=== PATIENT | female | born 1945 | race Caucasian/White ===

== ENCOUNTER 2024-05-20 09:51 | Inpatient (IN) | payer MEDICARE ==
[~2024-05-20] VITALS: Ht 162.6 cm; Wt 68.5 kg
[2024-05-20] MEDS: SODIUM CHLORIDE 0.9% 1000ML 1,000 ML IV STA (10:27)
[2024-05-20 10:39] LABS: BASOPHILS % 0.3 % (0.0-1.0); HEMATOCRIT 41.5 % (34.2-44.1); HEMOGLOBIN 12.6 g/dL (12.0-16.0); LYMPHOCYTES # (AUTO) 0.3 (1.0-3.2); LYMPHOCYTES % 5.6 % (18.0-39.1); MEAN CORPUSCULAR HEMOGLOBIN 28.7 pg (28-32); MEAN CORPUSCULAR HGB CONC 30.4 g/dL (31-35); MEAN CORPUSCULAR VOLUME 94.5 fL (81-99); MONOCYTES # (AUTO) 0.5 (0.2-0.8); MONOCYTES % 8.7 % (4.4-11.3); NEUTROPHILS # (AUTO) 5.2 (2.1-6.9); NEUTROPHILS % 85.1 % (38.7-80.0); PLATELET COUNT 182 x10e3/uL (140-360); RED BLOOD COUNT 4.39 x10e6/uL (3.6-5.1); RED CELL DISTRIBUTION WIDTH 13.7 % (11.7-14.4); WHITE BLOOD COUNT 6.07 x10e3/uL (4.8-10.8)
[2024-05-20 10:50] LABS: CORONAVIRUS COVID-19 AG NEGATIVE (NEGATIVE); INFLUENZA B AG NEGATIVE (NEGATIVE)
[2024-05-20 10:53] LABS: INFLUENZA A AG POSITIVE (NEGATIVE)
[2024-05-20 11:14] LABS: INR 0.94; PROTHROMBIN TIME 13.2 seconds (11.9-14.5)
[2024-05-20 11:15] LABS: PARTIAL THROMBOPLASTIN TIME 29.1 seconds (23.8-35.5)
[2024-05-20 11:20] LABS: ALBUMIN 4.2 g/dL (3.5-5.0); ALBUMIN/GLOBULIN RATIO 1.1 (0.8-2.0); ANION GAP 16.1 mmol/L (8-16); BILIRUBIN,TOTAL 0.4 mg/dL (0.2-1.2); CALCIUM 9.5 mg/dL (8.4-10.2); CREATININE, SERUM 0.74 mg/dL (0.57-1.11); POTASSIUM 4.1 mmol/L (3.5-5.1)
[2024-05-20] MEDS: KETOROLAC TROMETHAMINE 30 MG/ML VIAL IV STA (12:52)
[2024-05-20] MEDS ORDERED: Morphine 4mg INJECTION 4 MG/ML INJ IV PRN (14:15)
[2024-05-20] MEDS ORDERED: ONDANSETRON HCL INJ 2MG/ML 2ML 2 MG/ML VIAL IV PRN (14:15)
[2024-05-20] MEDS: OSELTAMIVIR PHOSPHATE 75 MG CAP PO ONE (14:49)
[2024-05-20] MEDS: ACETAMINOPHEN 325 MG TAB PO ONE (14:49)
[2024-05-20] MEDS: SODIUM CHLORIDE 0.9% 1000ML 1,000 ML IV SCH (14:49)
[2024-05-20 17:07] VITALS: PULSE 68; RESP 16; TEMP 99.4
[2024-05-20] MEDS ORDERED: DOCUSATE SODIUM 100 MG CAP PO PRN (18:00)
[2024-05-20] MEDS ORDERED: SIMETHICONE 80 MG CHEW PO PRN (18:00)
[2024-05-20] MEDS ORDERED: METOPROLOL TARTRATE INJ 1 MG/ML VIAL IV PRN (18:00)
[2024-05-20] MEDS ORDERED: METOPROLOL TARTRATE 25 MG TAB PO SCH (18:00)
[2024-05-20] MEDS ORDERED: Doxycycline IV 100 MG in SODIUM CHLORIDE 0.9% 100 ML IV SCH (18:00)
[2024-05-20 19:45] VITALS: BP 110/52; PULSE 68; RESP 22; TEMP 98.2; O2SAT 97
[2024-05-20] MEDS: METOPROLOL TARTRATE 25 MG TAB PO SCH (20:00)
[2024-05-20 21:00] VITALS: RESP 19
[2024-05-20] MEDS: GUAIFENESIN/DEXTROMETHORPHAN LIQD 5 ML UDC NG PRN (21:30)
[2024-05-20] MEDS: Doxycycline IV 100 MG in SODIUM CHLORIDE 0.9% 100 ML IV SCH (21:30)
[2024-05-20] MEDS: BENZONATATE 100 MG CAP PO SCH (21:31)
[2024-05-20] MEDS: MELATONIN 3 MG TAB PO PRN (21:31)
[2024-05-20 22:35] VITALS: BP 156/68; PULSE 88; RESP 20; TEMP 98.6; O2SAT 95
[2024-05-20] MEDS: OSELTAMIVIR PHOSPHATE 75 MG CAP PO SCH (23:12)
[2024-05-21] VITALS (15 sets, daily range): BP systolic 113–156; BP diastolic 53–78; PULSE 71–103; RESP 16–22; TEMP 97.3–101.6; O2SAT 94–99
[2024-05-21] MEDS: ALBUTEROL/IPRATROPIUM 3 ML NEB NEB PRN (02:13)
[2024-05-21] MEDS: ACETAMINOPHEN 325 MG TAB PO PRN (04:11)
[2024-05-21 06:51] LABS: BASOPHILS % 0.5 % (0.0-1.0); EOSINOPHILS % 0.8 % (0.0-6.0); HEMATOCRIT 35.9 % (34.2-44.1); HEMOGLOBIN 10.7 g/dL (12.0-16.0); LYMPHOCYTES # (AUTO) 0.5 (1.0-3.2); LYMPHOCYTES % 12.6 % (18.0-39.1); MEAN CORPUSCULAR HEMOGLOBIN 28.2 pg (28-32); MEAN CORPUSCULAR HGB CONC 29.8 g/dL (31-35); MEAN CORPUSCULAR VOLUME 94.5 fL (81-99); MONOCYTES # (AUTO) 0.5 (0.2-0.8); NEUTROPHILS # (AUTO) 2.8 (2.1-6.9); NEUTROPHILS % 73.6 % (38.7-80.0); PLATELET COUNT 152 x10e3/uL (140-360); RED CELL DISTRIBUTION WIDTH 13.9 % (11.7-14.4); WHITE BLOOD COUNT 3.74 x10e3/uL (4.8-10.8)
[2024-05-21 07:24] LABS: ANION GAP 14.6 mmol/L (8-16); CALCIUM 8.6 mg/dL (8.4-10.2); CREATININE, SERUM 0.63 mg/dL (0.57-1.11); POTASSIUM 3.6 mmol/L (3.5-5.1)
[2024-05-21] MEDS: LORATADINE 10 MG TAB PO SCH (08:25)
[2024-05-21] MEDS: FAMOTIDINE 20 MG TAB PO SCH (08:25)
[2024-05-21] MEDS: GUAIFENESIN/DEXTROMETHORPHAN LIQD 5 ML UDC NG SCH ×2 (16:06→20:07)
[2024-05-21] MEDS: ENOXAPARIN SOD INJ 40 MG/0.4 ML SYR SC SCH (16:07)
[2024-05-22] VITALS (12 sets, daily range): BP systolic 115–144; BP diastolic 53–71; PULSE 76–89; RESP 18–19; TEMP 98.1–99.5; O2SAT 94–98
[2024-05-22 06:39] LABS: BASOPHILS % 0.8 % (0.0-1.0); EOSINOPHILS # (AUTO) 0.1 (0.0-0.4); EOSINOPHILS % 3.3 % (0.0-6.0); HEMATOCRIT 35.2 % (34.2-44.1); HEMOGLOBIN 11.4 g/dL (12.0-16.0); LYMPHOCYTES # (AUTO) 0.7 (1.0-3.2); LYMPHOCYTES % 28.3 % (18.0-39.1); MEAN CORPUSCULAR HEMOGLOBIN 28.4 pg (28-32); MEAN CORPUSCULAR HGB CONC 32.4 g/dL (31-35); MEAN CORPUSCULAR VOLUME 87.8 fL (81-99); MONOCYTES # (AUTO) 0.4 (0.2-0.8); MONOCYTES % 17.5 % (4.4-11.3); NEUTROPHILS # (AUTO) 1.2 (2.1-6.9); NEUTROPHILS % 49.7 % (38.7-80.0); PLATELET COUNT 179 x10e3/uL (140-360); RED BLOOD COUNT 4.01 x10e6/uL (3.6-5.1); RED CELL DISTRIBUTION WIDTH 13.7 % (11.7-14.4)
[2024-05-22 07:10] LABS: ANION GAP 14.3 mmol/L (8-16); CREATININE, SERUM 0.62 mg/dL (0.57-1.11); POTASSIUM 4.3 mmol/L (3.5-5.1)
[2024-05-23 03:13] VITALS: BP 122/65; PULSE 81; RESP 18; TEMP 98.4; O2SAT 96
[2024-05-23 08:54] VITALS: BP 130/67; PULSE 83; RESP 20; TEMP 98.5; O2SAT 98
[2024-05-23 09:00] VITALS: BP 130/67; PULSE 83; RESP 20; TEMP 98.5; O2SAT 98
[2024-05-23] MEDS ORDERED: LORATADINE10 MG PO (09:22)
[2024-05-23] MEDS ORDERED: LOPRESSOR25 MG PO (09:22)
[2024-05-23] MEDS ORDERED: FAMOTIDINE20 MG PO (09:22)
[2024-05-23] MEDS ORDERED: BENZONATATE100 MG PO (09:22)
[2024-05-23] MEDS: GUAIFENESIN/DEXTROMETHORPHAN LIQD 5 ML UDC NG SCH (09:55)
[2024-05-23 09:56] VITALS: PULSE 83
== END 2024-05-23 10:58 | disposition home or self-care (01) | DRG 872 ==
LOC: ER 10:03 → ERHOLD 14:15 → OBSVTOIN 17:51 → MED/SURG3 18:44
PROVIDERS: ADMIT Internal Medicine; ATTEND Internal Medicine
DX: A41.89 Other specified sepsis (principal); J10.1 Influenza due to other identified influenza virus with other respiratory manifestations; J20.8 Acute bronchitis due to other specified organisms; D72.819 Decreased white blood cell count, unspecified; I11.9 Hypertensive heart disease without heart failure; I25.10 Atherosclerotic heart disease of native coronary artery without angina pectoris; Z95.5 Presence of coronary angioplasty implant and graft; E03.9 Hypothyroidism, unspecified; R00.0 Tachycardia, unspecified; Z11.52 Encounter for screening for COVID-19; Z79.899 Other long term (current) drug therapy; Z90.49 Acquired absence of other specified parts of digestive tract
CPT/HCPCS: 36415; 71046; 80048; 80053; 83605; 85025; 85610; 85730; 93005; 94640; 94799; 99284; J1650; J1885; J7030; J7050